=== PATIENT | male | born 1960 | race Caucasian/White ===

== ENCOUNTER 2017-03-19 16:36 | Emergency (ER) | payer BC ==
[2017-03-19 17:05] VITALS: BP 143/94
--- NOTE | 2017-03-19 17:37 | UC ---
Back Pain HPI - HPI Summary HPI Summary: Noticed L lower back pain while doing yard work 2 days ago. Had to stop work as the pain worsened; got much worse the next morning. Has been resting and taking ibuprofen + acetaminophen since then and it is not getting any better. Feels tightness and spasms at times. No numbness or tingling in legs, no trouble with bowel or bladder, no recent fevers or weight loss. - History of Current Complaint Chief Complaint: EDBackInjuryPain Stated Complaint: BACK COMPLAINT Time Seen by Provider: 03/19/17 17:11 Hx Obtained From: Patient Onset/Duration: Gradual Onset, Lasting Days Timing: Constant Severity Initially: Mild Severity Currently: Moderate Back Pain: Is Discrete @ Character: Aching, Spasmodic, Stiffness Aggravating: Movement, Bending, Walking Alleviating: Rest Associated Signs And Symptoms: Negative: Swelling, Redness, Bruising, Weakness, Numbness, Tingling, Flank Pain, Bladder Incontinence, Bowel Incontinence - Allergies/Home Medications Allergies/Adverse Reactions: Allergies Allergy/AdvReac Type Severity Reaction Status Date / Time No Known Allergies Allergy Verified 08/18/16 10:14 Home Medications: Home Medications Ibuprofen [Advil] 200 mg PO 03/19/17 [History] PMH/Surg Hx/FS Hx/Imm Hx Endocrine History Of: Denies: Diabetes Cardiovascular History Of: Denies: Hypertension, Pacemaker/ICD GI/ History Of: Denies: Renal Disease - Surgical History Surgical History: Yes Surgery Procedure, Year, and Place: Lt KNEE - CARTILAGE REMOVED ( AROUND AGE 17) , ARTHROSCOPIC ( TOTAL OF 3 PROCEDURES ON THIS KNEE). Rt LEG - FEMUR /UPPER TROCHANTER- PIN & SCREWS. Lt LEG - COMPOUND FX -TIB/FIB - SURG TO SET - Family History Known Family History: Negative: Blood Disorder - Social History Occupation: Employed Full-time Lives: With Family Alcohol Use: Daily Substance Use Type: None Smoking Status (MU): Never Smoked Tobacco Review of Systems Constitutional: Negative Skin: Negative Eyes: Negative ENT: Negative Respiratory: Negative Cardiovascular: Negative Gastrointestinal: Negative Genitourinary: Negative Motor: Negative Neurovascular: Negative Musculoskeletal: Other: - L low back pain Neurological: Negative Psychological: Negative All Other Systems Reviewed And Are Negative: Yes Physical Exam Triage Information Reviewed: Yes Appearance: Well-Appearing, No Pain Distress, Well-Nourished Vital Signs: Initial Vital Signs Temp 97.5 F 04/29/17 16:55 Pulse 56 03/19/17 16:55 Resp 16 03/19/17 16:55 BP 143/94 03/19/17 16:55 Pulse Ox 100 03/19/17 16:55 Vital Signs Reviewed: Yes Eye Exam: Normal Eyes: Positive: Conjunctiva Clear ENT Exam: Normal ENT: Positive: Normal ENT inspection, Hearing grossly normal, Pharynx normal, TMs normal Dental Exam: Normal Neck exam: Normal Neck: Positive: Supple, Nontender, No Lymphadenopathy Respiratory Exam: Normal Respiratory: Positive: Chest non-tender, Lungs clear, Normal breath sounds, No respiratory distress, No accessory muscle use Cardiovascular Exam: Normal Cardiovascular: Positive: RRR, No Murmur Musculoskeletal Exam: Other - No bony tenderness over the spine Musculoskeletal: Positive: Strength Intact, No Edema Neurological Exam: Other - DTRs 2+ BLE, SLR negative B/L Neurological: Positive: Alert, Muscle Tone Normal Psychological Exam: Normal Skin Exam: Normal Back Pain Course/Dx - Differential Dx/Diagnosis Provider Diagnoses: low back strain Discharge - Discharge Plan Condition: Stable Disposition: HOME Prescriptions: Cyclobenzaprine TAB* [Flexeril TAB*] 10 mg PO TID PRN #15 tab PRN Reason: Pain HYDROcodone/ACETAMIN 5-325 MG* [[place] 5-325 TAB*] 1 tab PO Q8H PRN #10 tab MDD 3 PRN Reason: Pain Patient Education Materials: Low Back Strain (ED), Lower Back Exercises (ED) Referrals: Vero Kemp MD [Primary Care Provider] - 2 Weeks Additional Instructions: Use warm packs (or alternating warm and cold packs) to help with particularly bad spells during the day. Light activity such as slow-paced walking is encouraged, but do not push yourself to do aerobic exercise, heavy lifting, or yard work until your symptoms are completely resolved. You should be seen right away if you notice any muscular weakness in your legs, pain/numbness/tingling in your legs, trouble passing urine or stool, fevers, or severe pain.
== END 2017-03-19 17:43 | disposition home or self-care (01) ==
LOC: UCEAST 16:36
DX: S39.012A Strain of muscle, fascia and tendon of lower back, initial encounter (principal); X58.XXXA Exposure to other specified factors, initial encounter; Y93.9 Activity, unspecified; Y92.9 Unspecified place or not applicable
CPT/HCPCS: 99202; G0463

== ENCOUNTER 2017-03-21 15:34 | Emergency (ER) | payer BC ==
[2017-03-21] MEDS ORDERED: Cyclobenzaprine TAB* 10 MG PO ONE (16:14)
[2017-03-21] MEDS ORDERED: HYDROcodone/ACETAMIN 5-325 MG* 1 TAB PO ONE (16:15)
--- NOTE | 2017-03-21 17:03 | RAD ---
HISTORY: Pain in low back COMPARISONS: None TECHNIQUE: Multiple contiguous axial CT scans were obtained of the lumbar spine without intravenous contrast, with coronal and sagittal multiplanar reformations. FINDINGS: SPINAL CANAL: Evaluation of the central canal is limited on CT technique; however, there is no obvious canalicular mass or epidural hemorrhage. ALIGNMENT: There is a scoliotic curvature of the spine. VERTEBRAL BODIES: There is multilevel anterolateral marginal osteophyte formation. 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 JOINTS: There is facet osteoarthritic change, most pronounced along the lower lumbar spine MUSCULATURE: Unremarkable INTERVERTEBRAL DISCS: There is diffuse loss of intervertebral disc height throughout the spine. AXIAL IMAGES: T10-T11: There is no osseous neural foraminal narrowing or focal central canal stenosis. T11-T12: There is no osseous mamillary or focal central canal stenosis. T12-L1: There is no osseous neural foraminal narrowing or focal central canal stenosis. L1-L2: There is no osseous neural foraminal narrowing or focal central canal stenosis. L2-L3: There is mild disc bulge. There is marginal osteophyte formation at the neural foramina bilaterally. There is moderate bilateral neuroforaminal narrowing. There is no focal central canal stenosis. L3-L4: There is a broad-based disc bulge with facet and ligamentous of atrophy. There is marginal osteophyte formation at the neuroforamina bilaterally. There is moderate bilateral neuroforaminal narrowing. There is severe focal narrowing of the central canal. L4-L5: There is a broad-based disc bulge with ligamentous and facet hypertrophy. There is marginal osteophyte formation at the neural foramina bilaterally. There is severe bilateral neural foraminal narrowing. There is severe focal narrowing of the central canal. L5-S1: There is broad-based disc bulge at bilateral facet hypertrophy. There is marginal osteophyte formation at the neural foramina bilaterally. There is a questionable superimposed central disc protrusion measuring 0.6 centimeters in depth. There is severe bilateral neuroforaminal narrowing. There is no focal central canal stenosis. SOFT TISSUES: The visualized soft tissues of the abdomen are unremarkable. OTHER: None IMPRESSION: 1. DIFFUSE FUSIFORM NARROWING OF THE CENTRAL CANAL SECONDARY TO CONGENITALLY SHORT PEDICLES. 2. DEGENERATIVE DISC DISEASE AND OSTEOARTHRITIS. 3. THERE IS MORE FOCAL SEVERE NARROWING OF THE CENTRAL CANAL AT L3-L4 AND L4-L5. 4. THERE IS MULTIFOCAL NEURAL FORAMINAL NARROWING DESCRIBED ABOVE. 5. THERE IS A PROBABLE CENTRAL DISC PROTRUSION AT L5-S1
[2017-03-21 18:03] VITALS: BP 141/82
--- NOTE | 2017-03-22 10:55 | ED ---
Back Pain - HPI Summary HPI Summary: Patient is a 56yo healthy who presents to ED with CC of worsening low back pain x2 days. He remembers twisting wrong, feeling a pop and not being able to extend from the hips. He was seen at yesterday who prescribed in pain medicine and a muscle relaxer. No Xray was performed at the time. Today, he arrive to ED with worsening stiffness and pain not well controlled on the medications. He also notes to having Lyme disease and is concerned this pain is worse for him because of his Lyme. He has never had back problems before. Pain is constant and radiates down the right leg with associated numbness and tingling in the posterior thigh, calf and foot. Denies bladder or bowel dysfunction. Pain improves only slightly with [place]. - History of Current Complaint Chief Complaint: EDBackInjuryPain Stated Complaint: LOWER BACK PAIN Time Seen by Provider: 03/21/17 15:53 Hx Obtained From: Patient Onset/Duration: Sudden Onset Onset/Duration: Started Days Ago Timing: Constant Back Pain Location: Is Discrete @ - lower back Severity Initially: Moderate Severity Currently: Moderate Pain Intensity: 7 Pain Scale Used: 0-10 Numeric Character: Dull, Aching Aggravating Symptom(s): Movement, Lifting, Bending, Walking Alleviating Symptom(s): Rest, Heat Associated Signs And Symptoms: Positive: Weakness, Numbness, Tingling - Risk Factors AAA Risk Factors: Negative TAD Risk Factors: Negative Cauda Equina Risk Factors: Negative Epidural Abscess Risk Factors: Negative - Allergies/Home Medications Allergies/Adverse Reactions: Allergies Allergy/AdvReac Type Severity Reaction Status Date / Time No Known Allergies Allergy Verified 08/18/16 10:14 PMH/Surg Hx/FS Hx/Imm Hx Previously Healthy: Yes Endocrine/Hematology History: Denies: Hx Diabetes Cardiovascular History: Denies: Hx Hypertension, Hx Pacemaker/ICD History: Denies: Hx Renal Disease Sensory History: Denies: Hx Hearing Aid Psychiatric History: Denies: Hx Panic Disorder - Surgical History Surgery Procedure, Year, and Place: Lt KNEE - CARTILAGE REMOVED ( AROUND AGE 17) , ARTHROSCOPIC ( TOTAL OF 3 PROCEDURES ON THIS KNEE). Rt LEG - FEMUR /UPPER TROCHANTER- PIN & SCREWS. Lt LEG - COMPOUND FX -TIB/FIB - SURG TO SET - Immunization History Hx Pertussis Vaccination: No Immunizations Up to Date: No Infectious Disease History: No Infectious Disease History: Denies: Traveled Outside the [place] in Last 30 Days - Family History Known Family History: Negative: Blood Disorder - Social History Occupation: Employed Full-time Lives: With Family Alcohol Use: Occasionally Hx Substance Use: No Substance Use Type: Reports: None Hx Tobacco Use: No Smoking Status (MU): Never Smoked Tobacco Review of Systems Constitutional: Negative Cardiovascular: Negative Respiratory: Negative Gastrointestinal: Negative Positive: no symptoms reported, see HPI Positive: Arthralgia - L4-L5-S1 Skin: Negative Positive: Weakness, Paresthesia, Numbness Psychological: Normal All Other Systems Reviewed And Are Negative: Yes Physical Exam Triage Information Reviewed: Yes Vital Signs On Initial Exam: Initial Vitals Temp Pulse Resp BP Pulse Ox 98.5 F 67 16 162/92 100 03/21/17 15:48 03/21/17 15:48 03/21/17 15:48 03/21/17 15:48 03/21/17 15:48 Vital Signs Reviewed: Yes Appearance: Positive: Well-Appearing, Well-Nourished, Pain Distress Skin: Positive: Warm, Skin Color Reflects Adequate Perfusion Head/Face: Positive: Normal Head/Face Inspection Eyes: Positive: EOMI, JOAQUIN, Conjunctiva Clear Neck: Positive: Supple, No Lymphadenopathy Respiratory/Lung Sounds: Positive: Clear to Auscultation, Breath Sounds Present Cardiovascular: Positive: Normal, RRR, Pulses are Symmetrical in both Upper and Lower Extremities Musculoskeletal: Positive: Limited @ - Thorough physical exam was performed, focusing on thoracic and lumbar special tests and ROM. Due to patient pain around injury, physical exam was limited. Limited ROM. Flip Test positive. Straight leg raise positive. Kernig test positive. Negative Babinksi. Hip flexion and extension, knee extension, dorsiflexion, great toe extension and plantar flexion intact. Rotating at hips limited d/t pain. Nerve roots L4-S2 reflexes intact. L1-S2 nerve root sensory intact. No saddle anesthesia. Gait abnormal with flexion at hips, Abnormal @, Pain @ Neurological: Positive: Sensory/Motor Intact, Speech Normal Psychiatric: Positive: Normal AVPU Assessment: Alert Diagnostics - Vital Signs Vital Signs Temp Pulse Resp BP Pulse Ox 03/21/17 18:02 62 16 141/82 03/21/17 16:04 98.5 F 67 16 162/92 100 03/21/17 15:48 98.5 F 67 16 162/92 100 - Laboratory Lab Statement: Any lab studies that have been ordered have been reviewed, and results considered in the medical decision making process. Back Pain Course/Dx - Course Course Of Treatment: Patient sent to CT. Herniated disc at L5-S1 likely compressing on the nerve root on the R. Given Flexeril and Hydrocodone in ED. Given more rx for flexeril, hydrocodone - UC had given [address] Suazo's office. - Diagnoses Differential Diagnosis/HQI/PQRI: Positive: Herniated Disc, Osteoporosis, Strain , Sprain Provider Diagnoses: Herniated disc Discharge - Discharge Plan Condition: Stable Disposition: HOME Prescriptions: Cyclobenzaprine TAB* [Flexeril TAB*] 10 mg PO BID PRN #14 tab MDD 2 PRN Reason: Pain HYDROcodone/ACETAMIN 5-325 MG* [[place] 5-325 TAB*] 1 tab PO Q4H PRN #30 tab MDD 6 PRN Reason: Pain Patient Education Materials: Lyme Disease (ED), Lumbar Disc Herniation (ED), Lower Back Exercises (ED) Referrals: Mg Suazo MD [Medical Doctor] - Vero Kemp MD [Primary Care Provider] - Additional Instructions: Yarely Mclain MD, PhD [facility] [address] Get Directions Follow up with Dr. Suazo's office Flexeril: This medication is a muscle relaxant and can help relieve muscle spasms, muscle strain, or pain sensations. Flexeril can cause side effects that may impair your thinking or reactions. Be careful if you drive or do anything that requires you to be awake and alert. Avoid drinking alcohol, which can increase some of the side effects of Flexeril. Ibuprofen 600mg three times daily with meals for discomfort. For symptoms not well controlled with Ibuprofen, use the hydrocodone for relief. Return to ED if symptoms worsen or fail to improve, notice worsening swelling, warmth or redness around the joint, develop fever, or pain is uncontrolled with OTC medications. Moist heat to the area for comfort. Warm showers or baths may improve symptoms. It is important to remain mobile as tolerated to prevent stiffening of the joints and delay healing. Follow up with your PCP.
== END 2017-03-21 18:02 | disposition home or self-care (01) ==
LOC: ED 15:34
DX: M51.27 Other intervertebral disc displacement, lumbosacral region (principal); M54.5 Low back pain; R53.1 Weakness; M51.36 Other intervertebral disc degeneration, lumbar region
CPT/HCPCS: 72131; 99282; A9270-GY

== ENCOUNTER 2017-12-29 11:14 | Emergency (ER) | payer BC ==
--- OUTSIDE RECORDS SUMMARY | 2017-12-29 11:23 | XMS REPORT ---
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 05/21 hours as needed for pain Colace 12/28 Hx Capsules 100mg 40cap 1 po bid to Stephani s prevent Bladimir, - constipation M.D. 05/21 Cyclobenzaprine 12/28 Hx Tablets 10mg 40tab 1 tablet po Stephani HCL s q8 hours prn Bladimir, - muscle M.D. 05/21 spasms Hydrocodone Hx Unknown /0000 - 05/21 Celestone 3 mg 00/00 Active Injection Guille and 3mg /0000 MD Chip Medications Administered in Office Medication Date Status Form Strength Qnty SIG Indications Ordering Provider Depomedrol Administered Injection Stephani 40MG Rogelio Garrison M.D. Vital Signs Date Vital Result Comment 12/14/2017 Height 71.5 inches 5'11.50" Weight 185.00 lb BP Systolic 130 mmHg BP Diastolic 82 mmHg Respiratory Rate 17 /min Body Temperature 97.3 F Pain Level 2 BMI (Body Mass Index) 25.4 kg/m2 08/09/2016 Height 71.5 inches 5'11.50" Weight 182.00 lb Heart Rate 63 /min BP Systolic 135 mmHg BP Diastolic 87 mmHg BMI (Body Mass Index) 25.0 kg/m2 05/22/2014 Height 71 inches 5'11" Weight 175.00 lb Pain Level 0 BMI (Body Mass Index) 24.4 kg/m2 02/22/2014 Height 71 inches 5'11" Heart Rate 67 /min BP Systolic 135 mmHg BP Diastolic 79 mmHg 01/21/2014 Height 71 inches 5'11" Weight 175.00 lb Heart Rate 65 /min BMI (Body Mass Index) 24.4 kg/m2 01/07/2014 Height 71 inches 5'11" Weight 175.00 lb Heart Rate 65 /min BP Systolic 130 mmHg BP Diastolic 82 mmHg BMI (Body Mass Index) 24.4 kg/m2 12/28/2013 Height 71 inches 5'11" Weight 175.00 lb Heart Rate 62 /min BP Systolic 136 mmHg BP Diastolic 83 mmHg BMI (Body Mass Index) 24.4 kg/m2 Results Test Date Test Result H/L Range Note Laboratory test 08/09/2016 Body Fluid Crystals None Seen 1, 2 finding Body Fluid C&S 08/09/2016 Body Fluid Cult SEE RESULT BELOW 1, 3 Gram Stain Acid Fast Culture 08/09/2016 Acid Fast Culture SEE RESULT BELOW 1, 4 & Smear Smear Body Fluid Cell Count 08/09/2016 Body Fluid Source Synovial Fluid 1 Body Fluid Appearance Cloudy 1 Body Fluid Color Yellow 1 Body Fluid Volume TNP mL 1 Body Fluid WBC 5366 /mcL 1, 5 Body Fluid RBC 666 /mcL 1 Body Fluid Neutrophils 96 % 1 Body Fluid Band 1 % 1 Body Fluid Lymph 2 % 1 Body Fluid [place] 1 % 1 Body Fluid Total Cells Counted 100 1 Fluid Reviewed By MD (SEE NOTE) 1, 6 Laboratory test finding 08/09/2016 Anaerobic Culture SEE RESULT BELOW 1 , 7 Fungal Cult Other Sources SEE RESULT BELOW 1, 8 Laboratory test 08/09/2016 Fungal Cult Other SEE RESULT BELOW 1, 9 finding Sources Laboratory test 08/09/2016 Mycobacterial Culture See Comment 1, 10 finding 1 [id number] 2 [id number] What is the body fluid source?: Synovial (Joint) Fluid 3 SEE RESULT BELOW Name: CARLOS ALBERTOMARIA FERNANDA : [address]: Stephani Garrison MD Acct: [id number] Unit: [id number] AGE: 55 Location: [facility] Re08/09/16 SEX: M Status: REG REF SPEC: [id number] HIMANSHU: 08/09/16-1155 [facility] DR: Stephani Garrison MD REQ: [id number] RECD: 08/09/16 STATUS: COMP _ SOURCE: JOINT FLUI SPDESC: ORDERED: SHER Doss/MAGI COMMENTS: [id number] Procedure Result Reported Site Body Fluid Gram Stain Final 08/10/16- 42 ML 2+ Neutrophils No Organisms Seen Body Fluid Culture Final 08/13/16- 45 ML No Growth Day 4 * ML - MAIN LAB ([facility]) . END OF REPORT * ML=Testing performed at Main Lab DEPARTMENT OF PATHOLOGY, [address] [place] [address] Ronni Chen M.D. Director [facility] # [id number] 4 SEE RESULT BELOW Name: MARIA FERNANDA CARCAMO : [address]: Stephani Garrison MD Acct: [id number] Unit: [id number] AGE: 55 Location: [facility] Re08/09/16 SEX: M Status: REG REF SPEC: [id number] HIMANSHU: 08/09/16-1155 [facility] DR: Stephani Garrison MD REQ: [id number] RECD: 08/09/16 STATUS: RES _ SOURCE: BODY FLUID SPDESC: ORDERED: Anaerobic Cult, AFB Cult Smear COMMENTS: [id number] Procedure Result Reported Site Anaerobic Culture PENDING Acid Fast Stain - Direct Final 08/10/16 08 ML AFB Smear Result No Acid Fast Bacillus Present (Negative) Preparation By Cytospin Smear Due to limited sensitivity of the smear, results should be used as an adjunct in evaluating the patient's status and cultural examination is highly recommended for diagnosis. * ML - MAIN LAB ([facility]) . END OF REPORT * ML=Testing performed at Main Lab DEPARTMENT OF PATHOLOGY, [address] [place] [address] Ronni Chen M.D. Director [facility] # [id number] 5 -- REFERENCE VALUE -- Synovial: <150/mcL Peritoneal: <500/mcL Pleural: <500/mcL Pericardial: <500/mcL 6 Acute inflammation. Recommend correlation with microbiology culture studies. Reviewed by Salina Horton MD 7 SEE RESULT BELOW Name: MARIA FERNANDA CARCAMO : [address]: Stephani Garrison MD Acct: [id number] Unit: [id number] AGE: 55 Location: [facility] Re08/09/16 SEX: M Status: REG REF SPEC: [id number] HIMANHSU: 08/09/16-[address]: Stephani Garrison MD REQ: [id number] RECD: 08/09/16 STATUS: COMP _ SOURCE: BODY FLUID SPDESC: ORDERED: Anaerobic Cult, AFB Cult Smear COMMENTS: [id number] Procedure Result Reported Site Anaerobic Culture Final 08/13/16- 0844 ML No Growth Day 4 Acid Fast Stain - Direct Final 08/10/16- 812 ML AFB Smear Result No Acid Fast Bacillus Present (Negative) Preparation By Cytospin Smear Due to limited sensitivity of the smear, results should be used as an adjunct in evaluating the patient's status and cultural examination is highly recommended for diagnosis. * ML - MAIN LAB ([facility]) . END OF REPORT * ML=Testing performed at Main Lab DEPARTMENT OF PATHOLOGY, [address] [place] [address] Ronni Chen M.D. Director [facility] # [id number] 8 SEE RESULT BELOW Name: MARIA FERNANDA CARCAMO : [address]: Stephani Garrison MD Acct: [id number] Unit: [id number] AGE: 55 Location: [facility] Re08/09/16 SEX: M Status: REG REF SPEC: [id number] HIMANSHU: 08/09/16-1155 [facility] DR: Stephani Garrison MD REQ: [id number] RECD: 08/09/16 STATUS: RES _ SOURCE: WOUND SPDESC: ORDERED: Fungal - Other COMMENTS: [id number] Procedure Result Reported Site Fungal Cult - Other Sources Preliminary 08/30/16- 1111 ML No Growth Week 3 * ML - MAIN LAB ([facility]) . END OF REPORT * ML=Testing performed at Main Lab DEPARTMENT OF PATHOLOGY, [address] [place] [address] Ronni Chen M.D. Director [facility] # [id number] 9 SEE RESULT BELOW Name: MARIA FERNANDA CARCAMO : [address]: Stephani Garrison MD Acct: [id number] Unit: [id number] AGE: 56 Location: [facility] Re08/09/16 SEX: M Status: REG REF SPEC: [id number] HIMANSHU: 08/09/16-1155 [facility] DR: Stephani Garrison MD REQ: [id number] RECD: 08/09/16-1650 STATUS: COMP _ SOURCE: WOUND SPDESC: ORDERED: Fungal - Other COMMENTS: [id number] Procedure Result Reported Site Fungal Cult - Other Sources Final 09/06/16- 1111 ML No Growth Week 4 * ML - MAIN LAB ([facility]) . END OF REPORT * ML=Testing performed at Main Lab DEPARTMENT OF PATHOLOGY, [address] [place] [address] Ronni Chen M.D. Director [facility] # [id number] 10 SOURCE: KNEE, KNEE FLUID MYCOBACTERIAL CULTURE FINAL No growth after 60 days of incubation. Test Performed by: [address] [address] Hotel Operations Manager: Lawson Nguyễn II, M.D., Ph.D. Procedures Date CPT Code Description Status Comment 08/09/2016 38346 Inject/Drain Joint/Bursa Major Completed 02/22/2014 76614 Rad Exam; Hip Unilat Comp Completed 02/22/2014 56337 Rad Exam; Pelvis Completed 01/21/2014 69182 Rad Exam; Hip Unilat Comp Completed RT 01/21/2014 39759 Rad Exam; Pelvis Completed 12/28/2013 38169 Rad Exam; Femur Completed 12/28/2013 04599 Rad Exam; Hip Unilat Comp Completed 12/28/2013 87799 Rad Exam; Pelvis Completed Encounters Type Date Location Provider CPT E/M Dx Office Visit 08/09/2016 [facility] Garrison M.D. 67970 M25.562 10:45a Of [facility]AJ[facility]ica M17.12 M25.462 Office Visit 05/22/2014 12:00p [facility] Garrison M.D. 14050 820.8 [facility] Office Visit 02/22/2014 10:00a [facility] Garrison M.D. 26278 820.8 [facility] Office Visit 01/21/2014 2:00p [facility] G[facility] M.D. 95089 820.8 C.[facility]. V54.13 Office Visit 01/07/2014 3:15p [facility] M.D. 65269 820.8 C.[facility]. V54.13 Office Visit 12/28/2013 11:00a [facility] M.D. 17995 820.8 [facility] V54.13 782.1 Plan of Care Future Appointment(s):02/08/2018 10:45 am - Guille Saunders MD at [facility]01/06/2018 1:00 pm - Guille Saunders MD at [facility]12/14/2017 - Guille Saunders MDG56.01 Carpal tunnel syndrome, right upper limbG56.02 Carpal tunnel syndrome, left upper limbM65.312 Trigger thumb, left thumb
--- NOTE | 2017-12-29 13:10 | UC ---
Lower Extremity/Ankle HPI - HPI Summary HPI Summary: right foot pain 2-3 weeks no specific injury- pain in mid 4/5th Metatarsal area n/m /c intact distally - History of Current Complaint Chief Complaint: UCLowerExtremity Stated Complaint: FOOT INJURY Time Seen by Provider: 12/29/17 13:09 Hx Obtained From: Patient Onset/Duration: Sudden Onset, Lasting Weeks - 2-3, Other - waxing and waning Severity Initially: Mild Severity Currently: Mild Pain Intensity: 4 Pain Scale Used: 0-10 Numeric Aggravating Factor(s): Standing, Ambulation, Other - sometime pain will start in the mid of the night Alleviating Factor(s): OTC Meds Able to Bear Weight: Yes - Allergies/Home Medications Allergies/Adverse Reactions: Allergies Allergy/AdvReac Type Severity Reaction Status Date / Time No Known Allergies Allergy Verified 12/29/17 12:31 PMH/Surg Hx/FS Hx/Imm Hx Previously Healthy: Yes - Surgical History Surgical History: Yes Surgery Procedure, Year, and Place: Lt KNEE - CARTILAGE REMOVED ( AROUND AGE 17) , ARTHROSCOPIC ( TOTAL OF 3 PROCEDURES ON THIS KNEE). Rt LEG - FEMUR /UPPER TROCHANTER- PIN & SCREWS. spinal fusion. Lt LEG - COMPOUND FX -TIB/FIB - SURG TO SET - Family History Known Family History: Positive: None Negative: Blood Disorder - Social History Occupation: Employed Full-time Lives: With Family Alcohol Use: Occasionally Substance Use Type: None Smoking Status (MU): Never Smoked Tobacco Review of Systems Constitutional: Negative Skin: Negative Eyes: Negative ENT: Negative Respiratory: Negative Cardiovascular: Negative Gastrointestinal: Negative Genitourinary: Negative Motor: Negative Neurovascular: Negative Musculoskeletal: Arthralgia - right foot Neurological: Negative Psychological: Negative Is Patient Immunocompromised?: No All Other Systems Reviewed And Are Negative: Yes Physical Exam Triage Information Reviewed: Yes Appearance: Well-Appearing, No Pain Distress, Well-Nourished Vital Signs: Initial Vital Signs Temp 97.7 F 12/29/17 12:24 Pulse 102 12/29/17 12:24 Resp 16 12/29/17 12:24 BP 126/78 12/29/17 12:24 Pulse Ox 100 12/29/17 12:24 Vital Signs Reviewed: Yes Eye Exam: Normal Eyes: Positive: Conjunctiva Clear ENT Exam: Normal ENT: Positive: Normal ENT inspection, Hearing grossly normal. Negative: Nasal congestion, Trismus, Muffled voice, Hoarse voice, Dental tenderness, Sinus tenderness Dental Exam: Normal Neck exam: Normal Neck: Positive: Supple, Nontender Respiratory Exam: Normal Respiratory: Positive: Chest non-tender, No respiratory distress, No accessory muscle use Cardiovascular Exam: Normal Cardiovascular: Positive: RRR, Pulses Normal, Brisk Capillary Refill Musculoskeletal Exam: Normal Musculoskeletal: Positive: Strength Intact, ROM Intact, No Edema Neurological Exam: Normal Neurological: Positive: Alert, Muscle Tone Normal Psychological Exam: Normal Skin Exam: Normal Diagnostics - Radiology No standard instances Xray Interpretation: No Acute Changes Radiology Interpretation Completed By: ED Physician, Radiologist Lower Extremity Course/Dx - Course Course Of Treatment: ibuprofen, firm shoe follow with Dr. Devine - Differential Dx/Diagnosis Provider Diagnoses: Right foot pain Discharge - Discharge Plan Condition: Stable Disposition: HOME Patient Education Materials: Ibuprofen (By mouth), Tendinitis (ED) Referrals: Guille Devine MD [Medical Doctor] - 5 Days
--- NOTE | 2017-12-29 14:30 | RAD ---
INDICATION: Right foot injury. TECHNIQUE: 3 views of the right foot were obtained. FINDINGS: The bones are in normal alignment. No fracture is seen. Joint spaces appear maintained. IMPRESSION: NO EVIDENCE FOR FRACTURE.
[2017-12-29 15:04] VITALS: BP 138/79
== END 2017-12-29 14:48 | disposition home or self-care (01) ==
LOC: UCEAST 11:14
DX: M79.671 Pain in right foot (principal)
CPT/HCPCS: 99211; G0463

== ENCOUNTER 2018-02-13 13:55 | Day surgery (SDC) | payer BC ==
[~2018-02-13 13:55] MED LIST: Buffered Lidocaine 0.9% SYRIN* 5 ML/SYR SYRINGE INTRADERM ONE; Bupivacaine 0.25% SDV* 30 ML ONE; Famotidine IV* 10 MG/ML 2 ML (20 mg) IV ONE; Famotidine IV* 10 MG/ML 2 ML (20 mg) ONE; Metoclopramide TAB* 10 MG ONE; Metoclopramide TAB* 10 MG PO ONE
[2018-02-13] MEDS ORDERED: fentaNYL* 50 MCG/ML 2 ML VIAL (100 MCG VIAL) IV PRN (14:47)
[2018-02-13] MEDS ORDERED: oxyCODONE/Acetamin 5/325 MG* TAB PO PRN (14:47)
[2018-02-13] MEDS ORDERED: Ondansetron INJ* 2 MG/ML VIAL IV PRN (14:47)
[2018-02-13] MEDS ORDERED: Naloxone* 0.4 MG/ML 1 ML VIAL IV PRN (14:47)
[2018-02-13] MEDS ORDERED: Lidocaine 2% PF * 5 ML VIAL ONE (15:27)
[2018-02-13] MEDS ORDERED: Dexamethasone IV* 4 MG/ML 1 ML (4 MG) ONE (15:27)
[2018-02-13] MEDS ORDERED: Midazolam* 1 MG/ML 5 ML VIAL (5 MG) ONE (15:27)
[2018-02-13] MEDS ORDERED: Propofol* 10 MG/ML 20 ML BTL IV PUSH ONE (15:27)
[2018-02-13] MEDS ORDERED: Ketorolac INJ* 30 MG/ML 1 ML VIAL ONE (15:27)
[2018-02-13] MEDS ORDERED: Ondansetron INJ* 2 MG/ML VIAL ONE (15:27)
[2018-02-13] MEDS ORDERED: fentaNYL* 50 MCG/ML 2 ML VIAL (100 MCG VIAL) ONE (15:27)
[2018-02-13] MEDS ORDERED: Midazolam* 1 MG/ML 2 ML VIAL (2 MG) ONE (16:27)
[2018-02-13 17:29] VITALS: BP 136/80
--- NOTE | 2018-02-17 14:11 | OP ---
DATE OF OPERATION: 02/13/18 - [facility] DATE OF : 56 SURGEON: Guille Saunders MD PANEL FITTER: MADALYN Jones. ANESTHESIOLOGIST: Dr. Leone. ANESTHESIA: Local MAC. PRE-OP DIAGNOSES: 1. Left carpal tunnel syndrome. 2. Left trigger thumb. POST-OP DIAGNOSES: 1. Left carpal tunnel syndrome. 2. Left trigger thumb. OPERATIVE PROCEDURE: 1. Left open carpal tunnel release. 2. Left trigger thumb release. INDICATIONS: Maria Fernanda has left carpal tunnel syndrome. He also has left trigger thumb. I have injected it, but it is starting to come back. He talked to me in the preop area and told me it was starting to come back and starting to hurt him more. He had asked me if we could release the trigger thumb as well given that we are already in the operating room. I thought that was very reasonable given that his pain and dysfunction is starting to come back. He understands the risks and benefits and wanted to proceed. ESTIMATED BLOOD LOSS: 2 mL. COMPLICATIONS: None. FINDINGS: As expected. DESCRIPTION OF PROCEDURE: Maria Fernanda was seen in the preoperative holding area. The correct side, site, and procedure were identified. We came back to the operating room where he got some anesthesia and I infiltrated the operative areas with 0.25% plain Marcaine. The arm was then prepped and draped in the usual fashion and time- out was performed. I exsanguinated the arm with the Esmarch and the tourniquet was inflated to 250 mmHg. I went ahead and then made a standard 2 to 3 cm longitudinal incision in the typical location for an open carpal tunnel release. Dissection was carried down to the palmar fascia and subcutaneous tissue. The transverse carpal ligament was released just off the radial aspect of the hook of the hamate. The release was completed distally and proximally. I released the fascia and subcutaneous tissue and retracted this volarly and ulnarly with a Kirby retractor. The remainder of the transverse carpal ligament and distal antebrachial fascia was released with a tenotomy scissors. Once there was absolutely no compression on the nerve, I irrigated out the wound. The skin was closed with 4-0 nylon suture. I then made a 1 cm transverse incision in the left thumb MCP joint flexion crease. Dissection was carried down bluntly and full thickness flaps were raised off the tendon protecting the radial and ulnar digital nerves. I used the 15 blade to longitudinally incise the A1 brendan. He had quite a nodule there. The release was completed proximally and distally with the tenotomy scissors. Once there was no more compression on the tendons and they were gliding nicely, I irrigated out the wounds. Skin was closed with 4-0 nylon suture. The wounds were dressed with Xeroform, 4x4's, sterile Webril and an Jl bandage. Tourniquet was deflated. He was taken to the recovery room in stable condition. [id number]/[facility] #: [id number] MTDD
== END 2018-02-13 17:49 | disposition home or self-care (01) ==
LOC: OR 13:55
PROVIDERS: ATTEND Orthopaedic Surgery Hand Surgery
DX: G56.02 Carpal tunnel syndrome, left upper limb (principal); M65.312 Trigger thumb, left thumb
CPT/HCPCS: A9270-GY; J1100; J1885; J2250; J2405; J2704; J3010